=== PATIENT | female | born 1985 | race American Indian/Alaskan Native ===

== ENCOUNTER 2020-08-20 15:45 | Outpatient (CLI) | payer MEDICAID ==
[2020-08-20] MEDS ORDERED: LACTATED RINGERS 1,000 ML IV SCH (17:00)
[2020-08-20 18:23] LABS: Bilirubin,Urine NEG (Negative); Blood,Urine NEG (Negative); Color,Urine Yellow (Yellow); Mucus,Urine FEW /HPF; Protein,Urine <15 mg/dL mg/dL (Negative); Urobilinogen,Urine < 2.0 mg/dL (<2.0)
[2020-08-20 18:24] LABS: Amphetamine Screen,Urine PRESUMPTIVE NEGATIVE; Benzodiazepines Screen,Urine PRESUMPTIVE NEGATIVE; Cannabinoid Screen,Urine PRESUMPTIVE NEGATIVE; Cocaine Screen,Urine PRESUMPTIVE NEGATIVE; Methadone Screen,Urine PRESUMPTIVE NEGATIVE; Opiate Screen,Urine PRESUMPTIVE NEGATIVE
[2020-08-20] MEDS ORDERED: BUTALB/ACETAMINOPHEN/CAFFEINE TAB PO ONE (18:31)
[2020-08-20 19:04] LABS: Hemoglobin 11.4 gm/dl (10.1-14.3); Mean Corpuscular HGB Conc 34 % (30-34); Mean Corpuscular Volume 94 fl (79-97); Platelet Count 272 K/mm3 (140-440); Red Blood Count 3.62 M/mm3 (3.65-5.03); Red Cell Distribution Width 12.4 % (13.2-15.2)
[2020-08-20 19:22] VITALS: BP 114/69
[2020-08-20 19:28] LABS: Alanine Aminotransferase 17 units/L (7-56); Uric Acid 4.2 mg/dL (3.5-7.6)
--- NOTE | 2020-08-22 09:22 | Ultrasound Report ---
ULTRASOUND OBSTETRIC LIMITED INDICATION / CLINICAL INFORMATION: ctx. Clinical Gestational Age (GA): 20 weeks 4.days COMPARISON: 03/16/2014 FINDINGS: HEART RATE (beats per minute): 145 AMNIOTIC FLUID = normal PRESENTATION: Breech. ADDITIONAL FINDINGS: Cervical length measures 5.1 cm. IMPRESSION: 1. Single viable intrauterine in breech position. 2. Cervical length measures 5.1 cm. Signer Name: Vick Kapadia MD Signed: 08/20/2020 6:35 PM Workstation Name: [id number]
--- NOTE | 2020-08-23 10:58 | Ultrasound Report ---
US OB limited INDICATION: CTX. TECHNIQUE: Transabdominal. COMPARISON: None available. FINDINGS: There is a single intrauterine . Heart Rate: 145 beats per minute. Position: breech. Cervix: closed. Length in cm (if measured): 5.1 IMPRESSION: 1. Cervical length 5.1cm. Signer Name: Nelson Nova MD Signed: 08/23/2020 10:54 AM Workstation Name: [id number]
== END 2020-08-20 19:43 | disposition home or self-care (01) ==
LOC: APU 15:45 → TRG 15:45
PROVIDERS: ATTEND Obstetrics & Gynecology
DX: O26.892 Other specified pregnancy related conditions, second trimester (principal); R10.12 Left upper quadrant pain; Z3A.20 20 weeks gestation of pregnancy
CPT/HCPCS: 36415; 59025; 76817; 80307; 81001; 82565; 83615; 84450; 84460; 84550; 85027; J7120; 76815

== ENCOUNTER 2020-08-27 23:25 | Outpatient (CLI) | payer MEDICAID ==
[2020-08-27 23:54] VITALS: BP 117/77
[2020-08-28 01:24] LABS: Bacteria,Urine 1+ /HPF (Negative); Bilirubin,Urine NEG (Negative); Blood,Urine SM (Negative); Color,Urine Yellow (Yellow); Mucus,Urine FEW /HPF; Protein,Urine <15 mg/dL mg/dL (Negative); Urobilinogen,Urine < 2.0 mg/dL (<2.0)
== END 2020-08-28 01:55 | disposition home or self-care (01) ==
LOC: TRG 23:25 → APU 23:26 → TRG 08-28 01:55
PROVIDERS: ATTEND Obstetrics & Gynecology
DX: O46.8X2 Other antepartum hemorrhage, second trimester (principal); Z3A.21 21 weeks gestation of pregnancy
CPT/HCPCS: 59025; 81001

== ENCOUNTER 2020-10-09 15:10 | Observation (INO) | payer MEDICAID ==
[2020-10-09 19:01] LABS: Bilirubin,Urine NEG (Negative); Blood,Urine NEG (Negative); Color,Urine Yellow (Yellow); Mucus,Urine 3+ /HPF
[2020-10-09] MEDS: LACTATED RINGERS 1,000 ML IV SCH (19:13)
[2020-10-09 19:30] LABS: Hematocrit 35.4 % (30.3-42.9); Hemoglobin 11.8 gm/dl (10.1-14.3); Mean Corpuscular HGB Conc 33 % (30-34); Mean Corpuscular Volume 94 fl (79-97); Platelet Count 228 K/mm3 (140-440); Red Blood Count 3.75 M/mm3 (3.65-5.03); Red Cell Distribution Width 12.7 % (13.2-15.2)
[2020-10-09 19:43] LABS: Alanine Aminotransferase 22 units/L (7-56); Uric Acid 5.6 mg/dL (3.5-7.6)
[2020-10-09] MEDS ORDERED: LACTATED RINGERS 1,000 ML IV SCH (20:15)
[2020-10-10] MEDS: LACTATED RINGERS 1,000 ML IV SCH (09:12)
[2020-10-10] MEDS ORDERED: ACETAMINOPHEN 500 MG TAB PO PRN (10:00)
--- NOTE | 2020-10-10 11:43 | History and Physical Report ---
History of Present Illness Date of examination: 10/10/20 Date of admission: 10/10/20 01:29 History of present illness: 35 yo -0-2-0 at 27 weeks and 6 days today as a walk-in patient who has had care in the [facility]. Patient was seen MF there for history of miscarriage x2 in the first trimester. Her blood pressure there yesterday was 140s over 90s with 2+ protein. Patient had normal preeclamptic blood work here. Patient started on 100 mg twice daily of labetalol here and blood pressure control is good. Patient with no preeclamptic symptoms currently. She had a headache earlier but that was relieved with Tylenol. Patient denies any history of hypertension in her past and any elevated blood pressures prior to her [facility] visit yesterday. records from her OB are currently not available. Good FM, no ctx, no LOF Past History Past Medical History: no pertinent history Past Surgical History: no surgical history - Obstetrical History : 3 Hx # Term Pregnancies: 0 Spontaneous Abortions: 2 Number of Living Children: 0 Medications and Allergies Allergies Allergy/AdvReac Type Severity Reaction Status Date / Time codeine AdvReac Unknown Verified 03/14/14 10:12 Penicillins AdvReac Unknown Verified 03/14/14 10:12 Home Medications Medication Instructions Recorded Confirmed Last Taken Type Ibuprofen [Motrin 800 MG tab] 800 mg PO Q6H PRN #30 tablet 03/16/14 Unknown Rx Methylergonovine [Methergine] 0.2 mg PO Q8HR #9 tablet 03/16/14 Unknown Rx Active Meds: Active Medications Acetaminophen (Acetaminophen 500 Mg Tab) 1,000 mg PO Q6H PRN PRN Reason: Pain, Mild (1-3) Last Admin: 10/10/20 09:49 Dose: 1,000 mg Documented by: Lactated Ringer's (Lactated Ringers) 1,000 mls @ 125 mls/hr IV DIRECT AGAPITO Last Infusion: 10/10/20 03:13 Dose: Infused Documented by: Lactated Ringer's (Lactated Ringers) 1,000 mls @ 25 mls/hr IV DIRECT AGAPITO Last Admin: 10/10/20 09:16 Dose: 25 mls/hr Documented by: Labetalol HCl (Labetalol 100 Mg Tab) 100 mg PO BID AGAPITO Last Admin: 10/10/20 09:11 Dose: 100 mg Documented by: Review of Systems All systems: negative (except HPI) - Vital Signs Vital signs: Vital Signs Pulse Pulse Ox 66 99 10/09/20 18:25 10/09/20 18:25 Temp Pulse Resp BP Pulse Ox 97.8 F 80 18 121/70 99 10/10/20 11:25 10/10/20 11:36 10/10/20 11:25 10/10/20 11:25 10/10/20 11:36 - Obstetrical FHR: auscultation normal Uterine Contraction Pattern: Absent Results Result Diagrams: 10/09/20 Unknown 10/09/20 Unknown Abnormal lab results 10/09/20 10/09/20 Range/Units Unknown Unknown RDW 12.7 L (13.2-15.2) % Lactate Dehydrogenase 214 H (91-180) units/L All other labs normal. Assessment and Plan - Patient Problems (1) Elevated blood pressure affecting in second trimester, antepartum Current Visit: Yes Status: Acute Plan to address problem: Blood pressure control is stable on labetalol 100 mg twice daily. Awaiting results of 24-hour urine which will be completed later today. If normal, will likely be able to send the patient home with the labetalol prescription. Patient understands and agrees with the plan.
[2020-10-10 21:39] LABS: Creatinine 24 Hour,Urine 1.4 (0.8-2.8); Creatinine,Urine 113.9 mg/dL (0.1-20.0)
--- NOTE | 2020-10-11 09:34 | Progress Note ---
Assessment and Plan Maternal/ well being reassuring overall awaiting [facility] consult BP's <140/90, stable on labetalol CFM possible d/c to home after [facility] consult Plan for conservative management unitl 37 weeks or pt becomes severe Pritesh Quarles MD Subjective - Subjective Date of service: 10/11/20 Interval history: IUP at 28 weeks, mild preeclampsia by BP criteria: 24 hour urine protein 312 24 hour BP's 130/80's On labetalol 100 BID since admission complains of headache at bedside Awaiting [facility] consult Patient reports: new complaints (Headache) Objective - Vital Signs Vital Signs: Vital Signs - 12hr 10/10/20 10/10/20 10/10/20 21:39 21:44 21:49 Temperature Pulse Rate 71 72 73 Blood Pressure O2 Sat by Pulse 99 98 98 Oximetry 10/10/20 10/10/20 10/10/20 21:54 21:59 22:04 Temperature Pulse Rate 66 70 72 Blood Pressure O2 Sat by Pulse 98 98 98 Oximetry 10/10/20 10/10/20 10/10/20 22:09 22:14 22:19 Temperature Pulse Rate 69 73 82 Blood Pressure O2 Sat by Pulse 99 98 99 Oximetry 10/10/20 10/10/20 10/10/20 22:20 22:26 22:27 Temperature Pulse Rate 74 65 80 Blood Pressure 165/94 O2 Sat by Pulse 100 92 Oximetry 10/10/20 10/10/20 10/10/20 22:31 22:36 22:41 Temperature Pulse Rate 63 66 66 Blood Pressure O2 Sat by Pulse 99 98 99 Oximetry 10/10/20 10/10/20 10/10/20 22:46 22:53 22:58 Temperature Pulse Rate 72 84 64 Blood Pressure O2 Sat by Pulse 99 99 99 Oximetry 10/10/20 10/10/20 10/10/20 23:03 23:08 23:09 Temperature Pulse Rate 66 67 66 Blood Pressure 168/97 O2 Sat by Pulse 99 100 Oximetry 10/10/20 10/10/20 10/10/20 23:13 23:18 23:23 Temperature Pulse Rate 67 66 68 Blood Pressure O2 Sat by Pulse 98 98 98 Oximetry 10/10/20 10/10/20 10/10/20 23:28 23:33 23:38 Temperature Pulse Rate 68 70 74 Blood Pressure O2 Sat by Pulse 98 98 98 Oximetry 10/10/20 10/10/20 10/10/20 23:39 23:43 23:48 Temperature Pulse Rate 71 72 71 Blood Pressure 141/90 O2 Sat by Pulse 99 100 Oximetry 10/11/20 10/11/20 10/11/20 07:15 07:46 07:54 Temperature Pulse Rate 78 68 78 Blood Pressure 155/89 154/89 152/91 O2 Sat by Pulse Oximetry 10/11/20 10/11/20 10/11/20 08:16 08:40 08:46 Temperature 98.6 F Pulse Rate 83 77 Blood Pressure 140/83 157/91 O2 Sat by Pulse Oximetry 10/11/20 09:16 Temperature Pulse Rate 77 Blood Pressure 137/82 O2 Sat by Pulse Oximetry - Exam Breasts: deferred Cardiovascular: Regular rate Lungs: Clear to auscultation Abdomen: Present: normal appearance, soft Uterus: Present: normal FHR: category 1 Uterine Contraction Monitor Mode: External - Labs Labs: Abnormal Labs 10/09/20 10/09/20 10/10/20 Unknown Unknown Unknown RDW 12.7 L Lactate Dehydrogenase 214 H Urine Creatinine 113.9 H Ur Total Protein 24 Hr 312.00 H Urine Total Protein 26 H Laboratory Results - last 24 hr 10/10/20 10/11/20 Unknown 08:50 Lactate Dehydrogenase 149 Urine Total Volume 1200 Urine Creatinine 113.9 H Ur Creatinine 24 Hour 1.4 Ur Total Protein 24 Hr 312.00 H Urine Total Protein 26 H
[2020-10-11 11:47] VITALS: BP 128/71
--- NOTE | 2020-10-11 11:47 | Consultation ---
History of Present Illness Consult date: 10/11/20 Requesting physician: GISELLE AVALOS Reason for consult: gestational hypertension History of present illness: Thank you for your referral of this patient. As you are aware, she is a 35 year old para 0020 with a history of chronic hypertension who presented to [facility] with elevated blood pressure after being by an MFM earlier this week. Patient was not on blood pressure medication. Her BP at the time of admission was 140/90. MEDICATION ADMISSION: Labetolol 100mg BID. She denies headaches or blurred vision. PAST OB HISTORY: SAB x 2 At the time of admission this patient she DENIED headache at which time she indicates have decreased. PIH Labs WNL Current blood pressure: 128/74 [facility] Ultrasonography See reports in patients chart Available Admission Labs: 24 Hour Urine at Pending. WBC: 8.9 HGB: 11.8 HCT: 35.4 PLT: 228 AST: 27 ALT: 22 LDH: 214 Most recent 24 hour urine : 312 mg protein. No serological evidence of HELLP Past History Past Medical History: no pertinent history Past Surgical History: no surgical history - Obstetrical History : 3 Medications and Allergies Allergies Allergy/AdvReac Type Severity Reaction Status Date / Time codeine AdvReac Unknown Verified 03/14/14 10:12 Penicillins AdvReac Unknown Verified 03/14/14 10:12 Home Medications Medication Instructions Recorded Confirmed Last Taken Type Ibuprofen [Motrin 800 MG tab] 800 mg PO Q6H PRN #30 tablet 03/16/14 10/10/20 Unknown Rx Methylergonovine [Methergine] 0.2 mg PO Q8HR #9 tablet 03/16/14 10/10/20 Unknown Rx Aspirin 1 tab PO QDAY 10/10/20 10/10/20 10/08/20 History Ferrous Sulfate 81 mg PO QDAY 10/10/20 10/10/20 10/08/20 History Pnv,Calcium 72/Iron/Folic Acid 1 tab PO DAILY 10/10/20 10/10/20 10/08/20 History [ Plus Tablet] Active Meds: Active Medications Acetaminophen (Acetaminophen 500 Mg Tab) 1,000 mg PO Q6H PRN PRN Reason: Pain, Mild (1-3) Last Admin: 10/10/20 09:49 Dose: 1,000 mg Documented by: Lactated Ringer's (Lactated Ringers) 1,000 mls @ 125 mls/hr IV DIRECT AGAPITO Last Infusion: 10/10/20 03:13 Dose: Infused Documented by: Lactated Ringer's (Lactated Ringers) 1,000 mls @ 25 mls/hr IV DIRECT AGAPITO Last Admin: 10/10/20 09:16 Dose: 25 mls/hr Documented by: Labetalol HCl (Labetalol 100 Mg Tab) 100 mg PO BID AGAPITO Last Admin: 10/11/20 10:15 Dose: 100 mg Documented by: - Vital Signs Vital signs: Vital Signs Pulse Pulse Ox 66 99 10/09/20 18:25 10/09/20 18:25 Temp Pulse Resp BP Pulse Ox 98.6 F 85 18 126/71 97 10/11/20 08:40 10/11/20 11:40 10/10/20 20:54 10/11/20 11:16 10/11/20 11:40 Results Result Diagrams: 10/09/20 Unknown 10/09/20 Unknown Abnormal lab results 10/10/20 Range/Units Unknown Urine Creatinine 113.9 H (0.1-20.0) mg/dL Ur Total Protein 24 Hr 312.00 H (2-200) mg/dL Urine Total Protein 26 H (5-11.8) mg/dL All other labs normal. Assessment and Plan ASSESSMENT Intrauterine at 27 weeks Admitted due to suspected elevated blood pressure; Rule out superimposed preeclampsia. Blood pressure improved on current medication. Stable and satisfactory candidate for discharge home RECOMMENDATIONS 1. Labs and presentation do NOT appear to suggest objective evidence of superimposed preeclampsia or HELLP syndrome. 2. We would recommend discharge home on current regimen of antihypertensive medications. 3. During todays consultation I have had the opportunity to review the warning signs of preeclampsia with the patient. 4. She has been instructed to return to the hospital immediately should she experience headache dizziness blurred vision chest discomfort or right upper quadrant pain. 5. The patient is also been instructed with regard to kick counts and the threshold for return to the hospital in this regard. 6. If stable following hospitalization we would recommend a follow-up visit with [facility] in one week. Thank you for allowing us to participate in the care of this patient. We look forward to the opportunity to assist in her continued management. If you have any questions, please contact our office at [phone] Vamshikwbo Juárez M.D.
--- NOTE | 2020-10-11 12:27 | Discharge Summary ---
Providers - Providers Date of Admission: 10/10/20 01:29 Date of discharge: 10/11/20 Attending physician: BRANDI RAMAN JR, MD 10/11/20 01:10 Consult to Physician [CONS] Routine Comment: Consulting Provider: [facility] Physician Instructions: Reason For Exam: preeclampsia Primary care physician: [facility] [employer] Hospitalization Reason for admission: other (elevated blood pressures) Discharge diagnosis: other (mild preeclampsia) Hospital course: Dx: [facility] with mild preeclampsia 24 hour urine protein 312 BP's <140/90, stable on labetalol 100 BIB /maternal well being reassuring overall Condition at discharge: Stable Disposition: - TO HOME OR SELFCARE Plan - Discharge Medications Prescriptions: labetaloL [Labetalol 100mg TAB] 100 mg PO BID #60 tablet - Provider Discharge Summary Activity: routine Diet: routine Instructions: routine Additional instructions: [] Smoking cessation referral if applicable(refer to patient education folder for contact #) [] Refer to [facility]'s [facility] Booklet Call your doctor immediately for: * Fever > 100.5 * Heavy vaginal bleeding ( >1 pad per hour) * Severe persistent headache * Shortness of breath * Reddened, hot, painful area to leg or breast * Drainage or odor from incision. * Keep incision clean and dry at all times and follow doctor's instructions regarding bathing/showering - Follow up plan Follow up: PRIMARY CAREMD [Primary Care Provider] - 7 Days
== END 2020-10-11 12:57 | disposition home or self-care (01) ==
LOC: TRG 15:10 → APU 15:16 → TRG 20:13 → LD 10-10 01:29
PROVIDERS: ADMIT Obstetrics & Gynecology; ATTEND Obstetrics & Gynecology
DX: O26.892 Other specified pregnancy related conditions, second trimester (principal); Z20.828 Contact with and (suspected) exposure to other viral communicable diseases; R03.0 Elevated blood-pressure reading, without diagnosis of hypertension; Z3A.27 27 weeks gestation of pregnancy
CPT/HCPCS: 36415; 81001; 82565; 82570; 83615; 84156; 84450; 84460; 84550; 85027; 96360; 96361; G0378; J7120; U0003